=== PATIENT | male | born 1950 | race Caucasian/White ===

== ENCOUNTER 2021-10-18 02:20 | Emergency (ER) | payer MEDICARE ==
[2021-10-18 03:31] LABS: ANION GAP 12.8 mEq/L (7-13); CHLORIDE,CL 100 mmol/L (98-107); SODIUM,NA 135 mmol/L (136-145)
[2021-10-18] MEDS ORDERED: Ketorolac 30 MG/ML SDV IVPUSH ONE (03:57)
[2021-10-18] MEDS ORDERED: Tamsulosin 0.4 MG Cap.ER PO ONE (03:58)
== END 2021-10-18 06:22 | disposition home or self-care (01) ==
LOC: DL.ED 02:20
DX: N20.2 Calculus of kidney with calculus of ureter (principal); E11.9 Type 2 diabetes mellitus without complications
CPT/HCPCS: 36415; 74176; 80053; 81001; 82150; 83605; 83690; 85025; 96374; 99284; A9270; J1885